=== PATIENT | female | born 1990 | race Caucasian/White ===

== ENCOUNTER → 2017-01-30 | Outpatient (CLI) | payer OTHER ==
[~2017-01-30] MED LIST: ALBU0.086 INH; ALBU1AER INH
[2017-01-30 15:17] LABS: CHLAMYDIA PCR NOT DETECTED (NOT DETECT); NEISSERIA PCR NOT DETECTED (NOT DETECT)
== END ==
LOC: CLAB 12:42
DX: B20 Human immunodeficiency virus [HIV] disease (principal); B00.9 Herpesviral infection, unspecified; Z11.3 Encounter for screening for infections with a predominantly sexual mode of transmission
CPT/HCPCS: 36415; 86695; 86696; 86703; 87491; 87591